=== PATIENT | male | born 1935 | race Caucasian/White ===

== ENCOUNTER 2017-09-02 15:16 | Inpatient (IN) | payer MEDICARE, OTHER ==
[~2017-09-02] VITALS: Ht 167.6 cm; Wt 73.1 kg
--- NOTE | 2017-09-02 15:25 | NUR ---
[id number] from home: R hip pain, lower extremities weakness s/p mechanical fall yesterday. cough, fever. RR IS EVEN AND UNLABORED WITH NAD NOTED. SKIN IS WARM AND DRY. PLACED ON THE MONITOR AND NC AT 2L/MIN. AWAITING MD FOR EVAL.
[2017-09-02 16:05] LABS: BASOPHILS % (AUTO) 0.2 % (0.0-2.0); HEMATOCRIT 43 % (39-51); HEMOGLOBIN 14.9 g/dL (13.5-17.5); LYMPHOCYTES # (AUTO) 0.9 /CMM (0.8-4.8); MEAN CORPUSCULAR HGB CONC 35 g/dl (31.0-36.0); MEAN CORPUSCULAR VOLUME 94 fL (80-96); MONOCYTES # (AUTO) 0.5 /CMM (0.1-1.30); MONOCYTES % (AUTO) 6.5 % (2.0-12.0); NEUTROPHILS # (AUTO) 6.4 /CMM (1.8-8.9); NEUTROPHILS % (AUTO) 82.3 % (43.0-81.0); PLATELET COUNT (AUTO) 220 /CMM (150-450); RDW COEFFICIENT OF VARIATION 12.7 (11.5-15.0); RED BLOOD CELL COUNT(AUTO) 4.51 MIL/uL (4.5-6.0); WHITE BLOOD COUNT (AUTO) 7.8 K/uL (4.3-11.0)
[2017-09-02 16:23] LABS: ALANINE AMINOTRANSFERASE 24 U/L (12-78); ALKALINE PHOSPHATASE 75 U/L (46-116); ASPARTATE AMINOTRANSFERASE 27 U/L (15-37); BILIRUBIN,DIRECT 0.3 mg/dL (0.0-0.2); BILIRUBIN,TOTAL 1.2 mg/dL (0.2-1.0); CALCIUM, SERUM 9.2 mg/dL (8.5-10.1); CARBON DIOXIDE 22 mmol/L (21-32); CHLORIDE 98 mmol/L (98-107); GLUCOSE 299 mg/dL (74-106); POTASSIUM 3.7 mmol/L (3.5-5.1); SODIUM SERUM 136 mmol/L (136-145); TOTAL PROTEIN, SERUM 8.1 g/dL (6.4-8.2); UREA NITROGEN, BLOOD 14 mg/dL (7-18)
[2017-09-02 16:25] LABS: TROPONIN I < 0.017 ng/mL (0.00-0.056)
[2017-09-02 16:39] LABS: INR 0.98 (0.87-1.13)
--- NOTE | 2017-09-02 17:33 | NUR ---
DR.RUTHERFORD JENNIFER EXHAUST WORKER
--- NOTE | 2017-09-02 17:36 | NUR ---
CALLED NURSING SUP. FOR MS BED
[2017-09-02] MEDS ORDERED: IV 1/2NS 1000 ML 1,000 ML IV PRN (17:44)
[2017-09-02] MEDS ORDERED: DULA1.5P SQ (17:52)
[2017-09-02] MEDS ORDERED: METF-442 PO (17:52)
[2017-09-02] MEDS ORDERED: LISI-607 PO (17:52)
[2017-09-02] MEDS ORDERED: TAMS0.4C34 PO (17:52)
[2017-09-02] MEDS ORDERED: GUAI100S11 PO (17:53)
[2017-09-02] MEDS ORDERED: Z GUARD REMEDY 2 OZ OINT TP PRN (18:00)
[2017-09-02] MEDS ORDERED: MAG HYDROX/AL HYDROX/SIMETH 30 ML UDC PO PRN (18:00)
[2017-09-02] MEDS ORDERED: ZOLPIDEM TARTRATE 5 MG TABLET PO PRN (18:00)
[2017-09-02] MEDS ORDERED: MAGNESIUM HYDROXIDE 30 ML UDC PO PRN (18:00)
[2017-09-02] MEDS ORDERED: MORPHINE SULFATE INJ 2 MG/ML DISP.SYRIN IV PRN (18:00)
[2017-09-02] MEDS ORDERED: HYDROCODONE/APAP 5/325MG 1 EACH TABLET PO PRN (18:00)
--- NOTE | 2017-09-02 18:10 | NUR ---
REPORT GIVEN TO SB BEAVERS FOR JOSE MS 202.
[2017-09-02 19:00] VITALS: BP 137/58
--- NOTE | 2017-09-02 19:00 | NUR ---
MS RN OPENING NOTES RECEIVED PT IN BED, AROUSABLE, ABLE TO STATE HIS NAME BUT GOES BACK TO SLEEP AFTER. NO DISTRESS, NO SOB NOTED. RESPIRATION IS EVEN AND UNLABORED. SON JESSA AT BEDSIDE. PT NOTED WITH ON AND OFF EPISODE OF COUGH. PER SON PT HAS BEEN COUGHING AND HAS COLDS FOR 2 DAYS. BODY CHECK DONE, SKIN IS INTACT. NO C/O PAIN OR DISCOMFORT AT THIS TIME. IV SITE ON LAC G # 20 INTACT AND PATENT, NO S/S OF INFILTRATION NOTED. ASPIRATION PRECAUTION OBSERVED. PLAN OF CARE DISCUSSED WITH THE SON VERBALIZED UNDERSTANDING. CALL LIGHT WITHIN REACH. SAFETY PRECAUTIONS OBSERVED . WILL CONT TO MONITOR.
--- NOTE | 2017-09-02 19:52 | NUR ---
PT APPEARS SLEEPY, WILL OPEN HIS EYES WHEN HIS NAME IS CALLED BUT WILL GO BACK TO SLEEP RIGHT AFTER, PER SON PT IS USUALLY RESPONSIVE, BUT TODAY HE STARTED TO BE MORE SLEEPY THAN BEFORE. PT'S SON ALSO STATED THAT HIS DAD FELL AND KEPT COMPLAINING OF RIGHT HIP PAIN , BUT PT WITH NO S/S OF PAIN AT THIS TIME, SON ALSO STATED THAT HIS DAD HAD COLS AND COUGH FOR 2 DAYS ALREADY. . CHECKED PT'S BLOOD SUGAR , WITH RESULT OF 282 AT THIS TIME. WILL CONT TO MONITOR PT CLOSELY.
--- NOTE | 2017-09-02 19:58 | NUR ---
pt was picked up by radiology staff for ct of the pelvis, pt in stable condition accompanied by son
[2017-09-02] MEDS ORDERED: GUAIFENESIN 300 MG/15 ML UDC PO PRN (20:00)
[2017-09-02] MEDS ORDERED: *INSULIN REGULAR(HUMULIN R)HUM 100 UNIT/ML VIAL SQ PRN (20:00)
[2017-09-02] MEDS ORDERED: DEXTROSE 50%-WATER 50 ML DISP.SYRIN IV PRN (20:00)
[2017-09-02] MEDS: ENOXAPARIN SODIUM 30 MG/0.3 ML DISP.SYRIN SQ SCH (21:19)
[2017-09-02] MEDS: BLOOD SUGAR DIAGNOSTIC 1 EACH STRIP VI SCH (21:21)
--- NOTE | 2017-09-02 21:40 | NUR ---
PT'S 02 SATURATION : 78 % AT THIS TIME, PT STILL AROUSABLE, ABLE TO OPEN HIS EYES, NASAL CANNULA OF 4 LPM ADMINISTERED TO THE PT , PT'S 02 SAT STILL ON THE 80'S , NC CHANGED TO MASK @ 8LPM , PT'S 02 SAT : 87 RT AT BEDSIDE. , PT WAS PLACED ON NON REBREATHER MASK @ 15L, 02 SAT : 94 % AT THIS TIME. JEFFERY, CHARGE NURSE INFORMED. PLACED A CALL TO MADDIE WILSON AWAITING FOR A CALL BACK .
--- NOTE | 2017-09-02 21:51 | NUR ---
RECEIVED A CALL BACK FROM MADDIE WILSON, INFORMED MADDIE REGARDING PT'S CONDITION, PT STILL ON A NON REBREATHER MASK @ 15 L , 02 SAT : 95 % AT THIS TIME,LETHARGIC. RECEIVED A N.O ORDERS FROM MADDIE WILSON NOTED AND CARRIED OUT. JEFFERY, COMPUTER ANALYST SUPERVISOR NURSE MADE AWARE.
--- NOTE | 2017-09-02 21:54 | NUR ---
PLACED A CALL TO RADIOLOGY DEPT AND SPOKE WITH KENNY, MADE AWARE, REGARDING STAT PULMONARY ANGIOGRAM ORDER.
--- NOTE | 2017-09-02 21:55 | NUR ---
PLACED A CALL TO ICU, SPOKE WITH RN MADE AWARE OF THE PT'S TRANSFER. PT WILL BE IN ROOM 258.
--- NOTE | 2017-09-02 22:00 | NUR ---
PLACED A CALL TO SB STERN REPORT GIVEN AND ENDORSED PT ACCORDINGLY.
--- NOTE | 2017-09-02 22:12 | NUR ---
PLACED A CALL TO PT'S SON JESSA, VERBAL CONSENT GIVEN FOR PULMONARY ANGIOGRAM, VERIFIED AND WITNESSED BY SB [place].
[2017-09-02] MEDS ORDERED: CT SWABBABLE VALVE TRANS SET 1 EA INFUS.SET MC ONE (22:19)
[2017-09-02] MEDS ORDERED: IOHEXOL-350 100 ML VIAL IV ONE (22:19)
[2017-09-02 22:26] LABS: ABG BASE EXCESS -3.6 mmol/L; ABG OXYGEN SATURATION 97.3 % (92.0-98.5); ABG PCO2 32.2 mmHg (35.0-45.0); ABG PO2 98.2 mmHg (75.0-100.0); AaDO2 582.6 mmHg; COHb 0.5 % (0.5-1.5); MetHb 0.5 % (0.0-1.5); O2Hb 96.3 % (94.0-97.0); SITE, ABG Right Radial; VENT MODE, BG NRB 15L
[2017-09-02] MEDS ORDERED: ENOXAPARIN SODIUM 60 MG/0.6 ML DISP.SYRIN SQ ONE (22:29)
[2017-09-02] MEDS ORDERED: ENOXAPARIN SODIUM 60 MG/0.6 ML DISP.SYRIN SQ SCH (22:30)
--- NOTE | 2017-09-02 22:34 | NUR ---
PT ACCOMPANIED TO RADIOLOGY FOR PULMONARY ANGIOGRAM, PT TRANSPORTED VIA ACLS PROTOCOL.
--- NOTE | 2017-09-02 22:55 | NUR ---
PT TRANSFERRED TO ICU ROOM 258, ENDORSED PT ACCORDINGLY TO JARRED BASURTO, BELONGINGS SENT WITH THE PT.
--- NOTE | 2017-09-02 23:00 | NUR ---
ICU ADMITTING NOTE PT TRANSFERED FROM MS 2 BY NIMESH BASURTO, S/P FALL, PELVIC XR (-) FOR FX, PT ON NON-REBREATHER @15L SAT @ 98% PRIOR TO RECEIVING PT, TRANSFERED TO CT PULMONARY WITH CONTRAST, BILAT LUNGS POSITIVE FOR LOWER LOBE PNA, UPON RECEIVING PT, DR LAL AT BEDSIDE, ASSESSED PT, CONCLUDED POSSIBLE CHF, ORDERED LASIX IV PUSH 40 MG X ONCE, DECADRONE 10MG IV PUSH, F/C INSERTED AND STARTED ON VACO 1GM AND ZOSYN 3.375GM IV, NO A/R NOTED AT THIS TIME WITH LAC 20G, ON 1/2NS @ 75MG, WELL ANNETTE DR LAL AWARE OF IV FLUIDS, PT DAIBETIC, BUT NIMESH BASURTO HELD INSULIN COVERAGE BECAUSE PT NOT ABLE TO ANNETTE PO INTAKE AT THIS TIME. WILL CONT TO MONITOR Addendum: 09/03/17 at 0601 by JARRED HUMPHRIES RN PT TRANSFERED BY SB BEAVERS, WRONG ENTRY. Addendum: 09/03/17 at 0604 by JARRED HUMPHRIES RN HELD INSULIN FOR BS 300, FOR POSSIBLE FX AND PT FOR POSSIBLE NPO STATUS
[2017-09-02] MEDS ORDERED: FUROSEMIDE 40 MG/4 ML VIAL IV ONE ×2 (23:30)
[2017-09-03] VITALS (24 sets, daily range): BP systolic 71–151; BP diastolic 43–90
[2017-09-03] MEDS ORDERED: DEXAMETHASONE SOD PHOSPHATE 10 MG/ML VIAL IV ONE (00:30)
[2017-09-03] MEDS ORDERED: PIPERACILLIN /TAZOBACTAM 3.375 G VIAL IV ONE ×2 (01:00→04:24)
[2017-09-03] MEDS ORDERED: VANCOMYCIN 1 GM in IV D5W 250 ML IV ONE (01:00)
[2017-09-03] MEDS: PIPERACILLIN /TAZOBACTAM 3.375 G in IV D5W 100 ML IV SCH ×2 (01:17→04:33)
[2017-09-03] MEDS ORDERED: VANCOMYCIN 1 GM VIAL ONE (01:19)
[2017-09-03] MEDS: ALBUTEROL FS 2.5 MG/0.5 ML VIAL.NEB NEB SCH ×5 (01:41→20:15)
[2017-09-03] MEDS: IPRATROPIUM NEB FS 0.5 MG/2.5 ML AMPUL.NEB NEB SCH ×5 (01:41→20:15)
[2017-09-03 04:57] LABS: HEMATOCRIT 43 % (39-51); LYMPHOCYTES # (AUTO) 0.7 /CMM (0.8-4.8); LYMPHOCYTES % (AUTO) 8.9 % (20.0-44.0); MEAN CORPUSCULAR HGB CONC 35 g/dl (31.0-36.0); MEAN CORPUSCULAR VOLUME 95 fL (80-96); MONOCYTES # (AUTO) 0.5 /CMM (0.1-1.30); MONOCYTES % (AUTO) 6.2 % (2.0-12.0); NEUTROPHILS # (AUTO) 6.6 /CMM (1.8-8.9); NEUTROPHILS % (AUTO) 84.9 % (43.0-81.0); PLATELET COUNT (AUTO) 202 /CMM (150-450); RED BLOOD CELL COUNT(AUTO) 4.52 MIL/uL (4.5-6.0); WHITE BLOOD COUNT (AUTO) 7.8 K/uL (4.3-11.0)
[2017-09-03 05:22] LABS: CALCIUM, SERUM 8.5 mg/dL (8.5-10.1); CARBON DIOXIDE 24 mmol/L (21-32); CHLORIDE 97 mmol/L (98-107); CREATININE 1.2 mg/dL (0.6-1.3); MAGNESIUM 1.9 mg/dL (1.8-2.4); PHOSPHORUS 4.9 mg/dL (2.5-4.9); POTASSIUM 3.5 mmol/L (3.5-5.1); SODIUM SERUM 135 mmol/L (136-145); UREA NITROGEN, BLOOD 18 mg/dL (7-18)
[2017-09-03 05:33] LABS: GLUCOSE 430 mg/dL (74-106)
[2017-09-03] MEDS: INSULIN REGULAR, HUMAN 100 UNIT/ML 3 ML VIAL SQ PRN ×5 (05:48→17:14)
--- NOTE | 2017-09-03 05:56 | NUR ---
CL BS [address] WILSON WITH ORDER TO GIVE 20UNITS NOW, AND RECHECK SCHEDULED AND REPORTED INCREASING AUDIBLE CRACKLES, ORDERED TO DC IV 1/2NS@75ML, GIVE LASIX 40MG IV PUSH X 1 DOSE ORDER CARRIED OUT, WILL CONT TO MONITOR THE PT.
[2017-09-03] MEDS ORDERED: FUROSEMIDE 40 MG/4 ML VIAL IV ONE (06:00)
[2017-09-03] MEDS: BLOOD SUGAR DIAGNOSTIC 1 EACH STRIP VI SCH ×2 (06:38→12:56)
--- NOTE | 2017-09-03 06:53 | NUR ---
SURGICAL ENDOSCOPIST CLOSING NOTE ENDORSED PT MORE AWAKE AOX2, EASILY AROUSEABLE, CL BS [address] WILSON, WITH ORDER FOR 20 UNITS OF REGULAR INSULIN NOW AND RECHECK PER SCHEDULE. AT 0630 RECHECKED BS 424 COVERED PER SLIDING SCALE 15 UNITS, REPORTED TO DR WILSON TO CALL BACK, PT VS STABLE, WILL ENDORSE TO AM SHIFT NURSE TO F/U.
--- NOTE | 2017-09-03 07:10 | NUR ---
RN NOTE PATIENT RECEIVED IN BED. PER PM NURSE JARRED HUMPHRIES. SOME OF PATIENT'S ARE MISSING. WENT TO CHECK SAFE WITH NURSING IN HOME CAREGIVER HIRO AND ALSO CHECKED EMERGENCY ROOM, WITH NO SUCCESS.
[2017-09-03] MEDS ORDERED: FEE PK DOSING 1 MIN EA MC ONE (08:26)
--- NOTE | 2017-09-03 08:30 | NUR ---
SPOKE TO JESSA, SON AND VERIFIED REGARDING PT'S BELONGINGS. PER PT'S SON HE HAVE HIS DAD'S WALLET AND CREDIT CARD WITH HIM , HE TOOK IT HOME, KAREN BEAVERS RN SPOKE WITH SON AND VERIFIED AND WITNESSED THAT PER JESSA, SON , HE HAS PT'S WALLET AND CREDIT CARD.
[2017-09-03] MEDS: LISINOPRIL (5MG) 5 MG TABLET PO SCH (08:40)
[2017-09-03] MEDS: TAMSULOSIN 0.4 MG CAP.SR.24H PO SCH ×2 (08:40→16:59)
[2017-09-03] MEDS: ONDANSETRON HCL/PF 4 MG/2 ML VIAL IVP PRN ×2 (11:01→18:40)
[2017-09-03] MEDS: ACETAMINOPHEN 325 MG TABLET PO PRN (11:01)
[2017-09-03] MEDS: PIPERACILLIN /TAZOBACTAM 3.375 G in IV D5W 50 ML IV SCH ×3 (12:56→23:03)
[2017-09-03] MEDS ORDERED: IV NS 0.9% 500 ML IV ONE (14:30)
[2017-09-03] MEDS: VANCOMYCIN 0.75 GM in IV D5W 250 ML IV SCH (14:43)
[2017-09-03] MEDS ORDERED: *INSULIN REGULAR(HUMULIN R)HUM 100 UNIT/ML VIAL SQ PRN (15:00)
[2017-09-03] MEDS ORDERED: DEXTROSE 50%-WATER 50 ML DISP.SYRIN IV PRN (15:00)
[2017-09-03] MEDS ORDERED: INSULIN REGULAR, HUMAN 100 UNIT/ML 3 ML VIAL SQ PRN (15:00)
[2017-09-03] MEDS: BLOOD SUGAR DIAGNOSTIC 1 EACH STRIP IN SCH ×2 (16:59→21:00)
--- NOTE | 2017-09-03 20:00 | NUR ---
RN INITIAL NOTES RECEIVED PT IN BED, AWAKE. NO DISTRESS, NO SOB NOTED. RESPIRATION IS EVEN AND UNLABORED. SON JESSA AT BEDSIDE. PT HAS A PRODUCTIVE COUGH. NO C/O PAIN OR DISCOMFORT AT THIS TIME. IV SITE ON LAC G # 20 INTACT AND PATENT, NO S/S OF INFILTRATION NOTED. ASPIRATION PRECAUTION OBSERVED. PLAN OF CARE DISCUSSED WITH THE SON VERBALIZED UNDERSTANDING. CALL LIGHT WITHIN REACH. SAFETY PRECAUTIONS OBSERVED . WILL CONT TO MONITOR.
[2017-09-03] MEDS: ENOXAPARIN SODIUM 30 MG/0.3 ML DISP.SYRIN SQ SCH (20:51)
[2017-09-04] VITALS (26 sets, daily range): BP systolic 71–140; BP diastolic 43–93
[2017-09-04] MEDS: VANCOMYCIN 0.75 GM in IV D5W 250 ML IV SCH ×2 (01:06→16:16)
[2017-09-04] MEDS: ACETAMINOPHEN 325 MG TABLET PO PRN (04:52)
[2017-09-04] MEDS: PIPERACILLIN /TAZOBACTAM 3.375 G in IV D5W 50 ML IV SCH ×4 (04:52→23:32)
[2017-09-04 05:21] LABS: CALCIUM, SERUM 8.7 mg/dL (8.5-10.1); CARBON DIOXIDE 26 mmol/L (21-32); CHLORIDE 94 mmol/L (98-107); CREATININE 1.6 mg/dL (0.6-1.3); POTASSIUM 3.2 mmol/L (3.5-5.1); SODIUM SERUM 133 mmol/L (136-145); UREA NITROGEN, BLOOD 39 mg/dL (7-18)
[2017-09-04 05:29] LABS: GLUCOSE 356 mg/dL (74-106)
[2017-09-04] MEDS: INSULIN REGULAR, HUMAN 100 UNIT/ML 3 ML VIAL SQ PRN ×2 (06:10→08:13)
--- NOTE | 2017-09-04 06:42 | NUR ---
RN CLOSING NOTE NO CHANGE IN PT CONDITION OVER NIGHT, PT MORE AWAKE AOX2, EASILY ABUSABLE, BS [address] WILSON, COVERED PER SLIDING SCALE 15 UNITS, PT VS STABLE, WILL ENDORSE TO AM SHIFT NURSE.
--- NOTE | 2017-09-04 07:45 | NUR ---
RN INITIAL NOTES RECEIVED PT IN BED, AWAKE. NO DISTRESS, NO SOB NOTED. RESPIRATION IS EVEN AND UNLABORED. SON JESSA AT BEDSIDE ,NO C/O PAIN OR DISCOMFORT AT THIS TIME. IV SITE ON LAC G # 20 INTACT AND PATENT, NO S/S OF INFILTRATION NOTED. ASPIRATION PRECAUTION OBSERVED. PLAN OF CARE DISCUSSED WITH THE SON VERBALIZED UNDERSTANDING. CALL LIGHT WITHIN REACH. SAFETY PRECAUTIONS OBSERVED . WILL CONT TO MONITOR. HAVING BREAKFAST AT THIS TIME ABLE TO EAT SELF, O TELE MONITOR ST 101 WITH NAVAS CATH TO GRAVITY BED IN LOWEST AND LOCKED POSITION , WILL CONT TO MONITOR CLOSELY
[2017-09-04] MEDS: IPRATROPIUM NEB FS 0.5 MG/2.5 ML AMPUL.NEB NEB SCH ×4 (07:56→20:02)
[2017-09-04] MEDS: ALBUTEROL FS 2.5 MG/0.5 ML VIAL.NEB NEB SCH ×4 (07:56→20:02)
[2017-09-04] MEDS: TAMSULOSIN 0.4 MG CAP.SR.24H PO SCH ×2 (08:11→16:48)
[2017-09-04] MEDS: LISINOPRIL (5MG) 5 MG TABLET PO SCH (08:11)
[2017-09-04] MEDS: BLOOD SUGAR DIAGNOSTIC 1 EACH STRIP IN SCH ×7 (08:16→23:10)
[2017-09-04] MEDS: ONDANSETRON HCL/PF 4 MG/2 ML VIAL IVP PRN ×2 (08:19→18:05)
--- NOTE | 2017-09-04 08:25 | NUR ---
RESIST COATER DEVELOPER NOTE BECOME SEVERE CHEST CONGESTED AFTER GIVEN1 SPOON OF OATMEAL , CALLED RT, BREATHING TX DONE ORDERED, ALSO ZOFRAN 4 MG IVP GIVEN ORDERED FOR NAUSEA , ST 115-120 ON TELE MONITOR , WILL MONITOR CLOSELY CHEST X RAY STAT DONE ORDERED
--- NOTE | 2017-09-04 08:40 | NUR ---
SERVICE CORRESPONDENT NOTE PER RT PLACED ON NONREBREATHER MASK FOR NOW, SAT 95% HR STILL ST 120, WILL CONT TO MONITOR CLOSELY
[2017-09-04] MEDS ORDERED: IV NS 0.9% 1,000 ML IV SCH (09:30)
--- NOTE | 2017-09-04 10:00 | NUR ---
SMOOTH AND BURR WORKER COMPOSITES NOTE PER RT PLACED ON SIMPLE MASK 6 L, SAT 95% AT THIS TIME, WILL CONT TO MONITOR CLOSELY
--- NOTE | 2017-09-04 10:36 | NUR ---
LEATHER CRAFTER NOTE SPOKE WITH DR MAR NOTIFIED THAT EARLIER GET SEVERE CHEST CONGESTED WITH CHEST X RAY MILD PULMONARY CONGESTION ALSO AWARE THAT BUN 39 CREATINE 1.6 AND URINE OUTPUT 100 ML SINCE MORNING NO LASIX AT THIS TIME ALSO SALTED OK TO STOP IVF AND AWAIT FOR EARLY INTERVENTIONIST AT THIS POINT , NO EDEMA NOTED ON BOTH LEGS AT THIS THIS TIME, NOTIFIED THAT HR RANGE 13-130, WILL CONT TO MONITOR Addendum: 09/04/17 at 1050 by RICA DASILVA RN CORRECTION IN SPELLING NOT SALTED IS ORDERED . AWARE THAT HR RANGE 113-130
--- NOTE | 2017-09-04 10:53 | NUR ---
ELECTRIC ARC WELDER NOTE CALLED X2 TO PHARMACY TO GET KCL IV ,STATED THAT WILL BRING SOON , WILL AWAIT, KCL NEED TO BE PLACED AT 09 :55 ,PHARMACIST AWARE
--- NOTE | 2017-09-04 11:54 | NUR ---
YOUTH SERVICES SPECIALIST NOTE CALLED AGAIN TO PHARMACY FOR KCI THEY SAY THAT WILL DELIVER SOON ,WILL F\U
[2017-09-04] MEDS ORDERED: ONDANSETRON 4 MG TAB.RAPDIS PO PRN (12:00)
[2017-09-04] MEDS: POTASSIUM CL. PREMIX PERIPHER. 50 ML IV SCH ×4 (12:24→23:21)
--- NOTE | 2017-09-04 13:15 | NUR ---
FLOCCULATOR OPERATOR NOTE SPOKE WITH DR GONZALEZ BURN CENTER NURSE NOTIFY THAT PER CHEST XRAY MILD PULMONARY CONGESTION, IVF WAS STOPPLED BY ORDER DR JESUS, AWARE THAT K 3.2 WILL ORDER REPLACING KCL ALSO AWARE THAT BUN 39 CREATINE 1.6 STATED THAT WILL ORDER LASIX 40 MG TIME ONE , WILL F\U
--- NOTE | 2017-09-04 14:43 | NUR ---
LICENSED INSURANCE AGENT NOTE PER DR GONZALEZ ACCOUNTING LECTURER OK TO ORDER LASIX 40 MG IVP TIME 1 ,AWARE OF CHEST X RAY RESULT
[2017-09-04] MEDS ORDERED: FUROSEMIDE 40 MG/4 ML VIAL IV ONE (15:00)
--- NOTE | 2017-09-04 16:31 | NUR ---
STUDY MANAGER NOTE VANCO LEVEL IS 12 ,VANCOMYCIN ADMINISTERED ORDERED , KEEP CLEAN DRY TURN REPOSITION Q2 HOUR , FAMILY AT BEDSIDE
[2017-09-04] MEDS: LACTOBACILLUS RHAMNOSUS GG 1 EACH CAP.SPRINK PO SCH (16:48)
--- NOTE | 2017-09-04 17:31 | NUR ---
STONER OUT NOTE BLOOD SUGAR IS 526 MG\ DL REPEATED IS 539 MG\ DL ORDERED GLUCOSE LEVEL STAT , WILL F\U
--- NOTE | 2017-09-04 18:15 | NUR ---
CONVALESCENT SITTER NOTE CALLED TO DR LAL NOTIFIED THAT BLOOD SUGAR 529 MG\ DL ORDERED 15 UNITS REGULAR INSULIN IV TIME ONE AND LANTUS QHS ORDER, CARRIED OUT
--- NOTE | 2017-09-04 18:29 | NUR ---
CARD PAINTER NOTE C\O NAUSEA AND VOMITING .ZOFRAN 4 MG IVP GIVEN ORDERED.WILL F\U ,FAMILY AT BEDSIDE
[2017-09-04] MEDS ORDERED: INSULIN REGULAR, HUMAN 100 UNIT/ML 10 ML VIAL IV ONE (18:30)
--- NOTE | 2017-09-04 18:30 | NUR ---
LEGUILLON DEBEADER NOTE INSULIN REGULAR 15 UNITS IV TIME ONE GIVEN ORDERED ,WILL CONT TO MONITOR CLOSELY
--- NOTE | 2017-09-04 20:00 | NUR ---
RN INITIAL NOTES RECEIVED PT IN BED, AWAKE. NO DISTRESS, NO SOB NOTED. RESPIRATION IS EVEN AND UNLABORED. SON JESSA AT BEDSIDE ,NO C/O PAIN OR DISCOMFORT AT THIS TIME. IV SITE ON LAC G # 20 INTACT AND PATENT, NO S/S OF INFILTRATION NOTED. ASPIRATION PRECAUTION OBSERVED. PLAN OF CARE DISCUSSED WITH THE SON VERBALIZED UNDERSTANDING. CALL LIGHT WITHIN REACH. SAFETY PRECAUTIONS OBSERVED . SR ON TELE MONITOR, WITH NAVAS CATH TO GRAVITY BED IN LOWEST AND LOCKED POSITION , WILL CONT TO MONITOR CLOSELY
[2017-09-04] MEDS ORDERED: POTASSIUM CHLORIDE 20 MEQ TAB.PRT.SR PO ONE (20:30)
[2017-09-04] MEDS ORDERED: INSULIN REGULAR, HUMAN 100 UNIT/ML 3 ML VIAL ONE (20:36)
[2017-09-04] MEDS: INSULIN REGULAR, HUMAN 100 UNIT in IV NS 0.9% 99 ML IV PRN ×2 (20:51)
[2017-09-04] MEDS: ENOXAPARIN SODIUM 30 MG/0.3 ML DISP.SYRIN SQ SCH (20:56)
[2017-09-04] MEDS ORDERED: INSULIN GLARGINE, 100 UNIT/ML CARTRIDGE SQ SCH (22:00)
[2017-09-04] MEDS: INSULIN GLARGINE, 100 UNIT/ML CARTRIDGE SQ SCH (22:00)
[2017-09-04 22:45] LABS: AMYLASE 153 U/L (25-115); CALCIUM, SERUM 8.5 mg/dL (8.5-10.1); CARBON DIOXIDE 26 mmol/L (21-32); CHLORIDE 92 mmol/L (98-107); CREATININE 2.1 mg/dL (0.6-1.3); LIPASE 128 U/L (73-393); SODIUM SERUM 128 mmol/L (136-145); UREA NITROGEN, BLOOD 46 mg/dL (7-18)
[2017-09-04 22:48] LABS: GLUCOSE 516 mg/dL (74-106); POTASSIUM 2.6 mmol/L (3.5-5.1)
[2017-09-04] MEDS ORDERED: POTASSIUM CL. PREMIX PERIPHER. 300 ML ONE (23:15)
[2017-09-05] VITALS (26 sets, daily range): BP systolic 97–137; BP diastolic 49–95
[2017-09-05] MEDS: BLOOD SUGAR DIAGNOSTIC 1 EACH STRIP IN SCH ×16 (00:23→21:26)
[2017-09-05] MEDS: POTASSIUM CL. PREMIX PERIPHER. 50 ML IV SCH ×6 (00:49→09:27)
[2017-09-05] MEDS: VANCOMYCIN 0.75 GM in IV D5W 250 ML IV SCH ×2 (02:58→15:08)
[2017-09-05] MEDS: PIPERACILLIN /TAZOBACTAM 3.375 G in IV D5W 50 ML IV SCH ×3 (05:05→17:18)
--- NOTE | 2017-09-05 06:43 | NUR ---
RN CLOSING NOTE PT PLACED ON AN INSULIN DRIP ORDERED BY Jeff WILSON, DONIS [phone], PT GIVEN POTASSIUM IV, PT VS STABLE, WILL ENDORSE TO AM SHIFT NURSE.
--- NOTE | 2017-09-05 07:15 | NUR ---
RIPPLER OPENING RECEIVED PATIENT MALTESE SPEAKING ONLY A/OX2-3 PLEASANT. DENIES SOB, DIFFICULTY BREATHING OR PAIN AT THIS TIME. ON SIMPLE FACE MASK 6LPM TOLERATING WELL. WILL TITRATE TOLERATED. PATIENT ON INSULIN DRIP PER MD ORDER INFUSING ORDERED. PATIENT PLACED ON 2LPM NC AND TOLERATING WELL; 94-98%. PATIENT NEEDS ASSESSED AND MET. SAFETY PRECAUTIONS IN PLACE. PATIENT WILL BE ROUNDED PRN. CALL LIGHT IN REACH.
[2017-09-05] MEDS: IPRATROPIUM NEB FS 0.5 MG/2.5 ML AMPUL.NEB NEB SCH ×4 (07:35→20:16)
[2017-09-05] MEDS: LACTOBACILLUS RHAMNOSUS GG 1 EACH CAP.SPRINK PO SCH ×2 (08:27→16:20)
[2017-09-05] MEDS: TAMSULOSIN 0.4 MG CAP.SR.24H PO SCH ×2 (08:27→16:20)
[2017-09-05] MEDS: ALBUTEROL FS 2.5 MG/0.5 ML VIAL.NEB NEB SCH ×4 (08:31→20:16)
[2017-09-05] MEDS: INSULIN REGULAR, HUMAN 100 UNIT in IV NS 0.9% 99 ML IV PRN ×10 (08:37→12:54)
[2017-09-05] MEDS: ONDANSETRON HCL/PF 4 MG/2 ML VIAL IVP PRN ×2 (08:44→16:32)
--- NOTE | 2017-09-05 08:56 | NUR ---
ICU/RN: Dr Diaz informed of current lab results and blood glucose trends that are trending down with anion gap of 14 - per MD will review labs and assess need to DC insulin drip.
--- NOTE | 2017-09-05 09:59 | NUR ---
ICU/RN: Dr Alfonso hook; updated on pt status - informed of current lab results on insulin drip, pt with good urinary output. MD to review records, awaiting orders.
--- NOTE | 2017-09-05 12:00 | NUR ---
ICU/RN: and daughter at bedside, updated and educated on POC. Per daughter, pt also has periods of confusion and forgetfulness at home. Pt attempted to pull out IV, arm sleeve applied for safety.
[2017-09-05 12:50] LABS: CALCIUM, SERUM 8.4 mg/dL (8.5-10.1); CARBON DIOXIDE 22 mmol/L (21-32); CHLORIDE 97 mmol/L (98-107); CREATININE 1.6 mg/dL (0.6-1.3); GLUCOSE 222 mg/dL (74-106); POTASSIUM 3.2 mmol/L (3.5-5.1); SODIUM SERUM 131 mmol/L (136-145); UREA NITROGEN, BLOOD 45 mg/dL (7-18)
[2017-09-05 12:59] LABS: HEMATOCRIT 37 % (39-51); HEMOGLOBIN 12.9 g/dL (13.5-17.5); LYMPHOCYTES # (AUTO) 0.8 /CMM (0.8-4.8); LYMPHOCYTES % (AUTO) 9.8 % (20.0-44.0); MEAN CORPUSCULAR HGB CONC 35 g/dl (31.0-36.0); MEAN CORPUSCULAR VOLUME 95 fL (80-96); MONOCYTES # (AUTO) 0.6 /CMM (0.1-1.30); MONOCYTES % (AUTO) 6.6 % (2.0-12.0); NEUTROPHILS % (AUTO) 83.6 % (43.0-81.0); PLATELET COUNT (AUTO) 210 /CMM (150-450); RDW COEFFICIENT OF VARIATION 12.7 (11.5-15.0); RED BLOOD CELL COUNT(AUTO) 3.91 MIL/uL (4.5-6.0); WHITE BLOOD COUNT (AUTO) 8.3 K/uL (4.3-11.0)
[2017-09-05 13:39] LABS: PHOSPHORUS 2.1 mg/dL (2.5-4.9)
--- NOTE | 2017-09-05 14:30 | NUR ---
ICU/RN: Dr Joe hook; updated on pt status. Orders electrolyte replacements, DC insulin drip and start aggressive sliding scale. Noted and carried out.
[2017-09-05] MEDS: ACETAMINOPHEN 325 MG TABLET PO PRN (14:49)
[2017-09-05] MEDS ORDERED: DEXTROSE 50%-WATER 50 ML DISP.SYRIN IV PRN (15:00)
[2017-09-05] MEDS: INSULIN REGULAR, HUMAN 100 UNIT/ML 3 ML VIAL SQ PRN ×3 (15:00→21:30)
[2017-09-05] MEDS ORDERED: POTASSIUM CHLORIDE 20 MEQ POWDER PACKET GT ONE (16:00)
[2017-09-05] MEDS ORDERED: NEUTRA PHOS 1 POWD.PACKET GT ONE (16:00)
--- NOTE | 2017-09-05 17:00 | NUR ---
ICU/RN: Per pt pain management effective. Pt received snack prior to 1700 accucheck. Will cover per sliding scale.
--- NOTE | 2017-09-05 19:08 | NUR ---
ICU/RN: Pt resting in bed comfortably, no distress noted. Pt with productive cough. Care endorsed to PM RN for JOSE.
--- NOTE | 2017-09-05 21:01 | NUR ---
[facility] OB INITIAL NOTE RECEIVED REPORT FROM EMMETT BASURTO. PT IN BED. A/A/0 X3. SON AT BEDSIDE. 2L NC, LUNG SOUNDS WHEEZING. BOWEL SOUNDS PRESENT, ABDOMEN DISTENDED BUT NON TENDER. PULSES PRESENT. IV PATENT AND INTACT. BED IN LOW LOCKED POSITION. CALL LIGHT WITHIN REACH. WILL CONTINUE TO MONITOR. ORDERS TO DOWNGRADE TO [place].
[2017-09-05] MEDS: ENOXAPARIN SODIUM 30 MG/0.3 ML DISP.SYRIN SQ SCH (21:28)
[2017-09-05] MEDS: INSULIN GLARGINE, 100 UNIT/ML CARTRIDGE SQ SCH (21:29)
[2017-09-06] VITALS (13 sets, daily range): BP systolic 119–154; BP diastolic 63–90
[2017-09-06] MEDS: BLOOD SUGAR DIAGNOSTIC 1 EACH STRIP IN SCH ×6 (00:02→21:23)
[2017-09-06] MEDS: INSULIN REGULAR, HUMAN 100 UNIT/ML 3 ML VIAL SQ PRN ×6 (00:07→21:25)
[2017-09-06] MEDS: VANCOMYCIN 0.75 GM in IV D5W 250 ML IV SCH ×2 (01:48→14:01)
[2017-09-06 05:05] LABS: BASOPHILS % (AUTO) 0.1 % (0.0-2.0); EOSINOPHILS % (AUTO) 0.3 % (0.0-6.0); HEMATOCRIT 38 % (39-51); HEMOGLOBIN 13.3 g/dL (13.5-17.5); LYMPHOCYTES # (AUTO) 1.1 /CMM (0.8-4.8); LYMPHOCYTES % (AUTO) 11.9 % (20.0-44.0); MEAN CORPUSCULAR HGB CONC 35 g/dl (31.0-36.0); MEAN CORPUSCULAR VOLUME 96 fL (80-96); MONOCYTES # (AUTO) 0.7 /CMM (0.1-1.30); MONOCYTES % (AUTO) 7.4 % (2.0-12.0); NEUTROPHILS # (AUTO) 7.5 /CMM (1.8-8.9); NEUTROPHILS % (AUTO) 80.3 % (43.0-81.0); PLATELET COUNT (AUTO) 239 /CMM (150-450); RDW COEFFICIENT OF VARIATION 12.8 (11.5-15.0); RED BLOOD CELL COUNT(AUTO) 3.94 MIL/uL (4.5-6.0); WHITE BLOOD COUNT (AUTO) 9.4 K/uL (4.3-11.0)
[2017-09-06] MEDS: PIPERACILLIN /TAZOBACTAM 3.375 G in IV D5W 50 ML IV SCH ×6 (05:11→23:38)
[2017-09-06 05:29] LABS: CALCIUM, SERUM 8.8 mg/dL (8.5-10.1); CARBON DIOXIDE 26 mmol/L (21-32); CHLORIDE 95 mmol/L (98-107); CREATININE 1.4 mg/dL (0.6-1.3); GLUCOSE 181 mg/dL (74-106); MAGNESIUM 2.1 mg/dL (1.8-2.4); PHOSPHORUS 2.2 mg/dL (2.5-4.9); POTASSIUM 3.8 mmol/L (3.5-5.1); SODIUM SERUM 131 mmol/L (136-145); UREA NITROGEN, BLOOD 34 mg/dL (7-18)
--- NOTE | 2017-09-06 07:35 | NUR ---
RN NOTES RECEIVED PT RESTING IN BED, AWAKE ALERT ORIENTED TO NAME, FRENCH SPEAKING. SR ON MATERIAL HANDLING SUPERVISOR. NO ACUTE DISTRESS NOTED. R HAND 20G SL, L HAND 20G SL FLUSHED WITH NS BOTH PATENT. DENIES PAIN AT THIS TIME. KEPT CLEAN AND COMFORTABLE. WILL MONITOR CLOSELY
[2017-09-06] MEDS: IPRATROPIUM NEB FS 0.5 MG/2.5 ML AMPUL.NEB NEB SCH ×4 (08:19→20:16)
[2017-09-06] MEDS: ALBUTEROL FS 2.5 MG/0.5 ML VIAL.NEB NEB SCH ×4 (08:19→20:16)
[2017-09-06] MEDS: LACTOBACILLUS RHAMNOSUS GG 1 EACH CAP.SPRINK PO SCH ×2 (09:05→17:12)
[2017-09-06] MEDS: TAMSULOSIN 0.4 MG CAP.SR.24H PO SCH ×2 (09:09→17:12)
--- NOTE | 2017-09-06 11:40 | NUR ---
RN NOTES PT TRANSFERRED TO 313-1 REPORT GIVEN TO SHAWN BASURTO FOR CONTINUITY OF CARE. AND DAUGHTER AT BEDSIDE. PT HAS WALLET AND WATCH FROM [employer]E (HANDED TO ME BY [facility] MAN), RE-CHECKED AND COUNTED WITH SB ESCOBAR AND INSTRUCTED TO PLACE ON SAFE. DAUGHTER MADE AWARE THAT PT VALUABLE WILL BE PLACED ON A SAFE, DAUGHTER AGREED BUT SHE SAID SHE WANTS TO JUST TAKE IT HOME EVENTUALLY. DAUGHTER INSTRUCTED TO JUST LET THE NURSE KNOW IF SHE'S READY TO TAKE THE BELONGINGS HOME.
--- NOTE | 2017-09-06 11:45 | NUR ---
TELE/FIRE SPRINKLER APPARATUS INSPECTOR FROM ICU PATIENT TRANSFERRED FROM ICU. A/O X 3, COOK ISLANDER SPEAKING. NO SIGNS OF ACUTE DISTRESS. NO COMPLAIN OF PAIN OR DISCOMFORT. ON TELE MONITOR NOTED WITH SINUS RHYTHM. ALL NEEDS ATTENDED TO. CALL LIGHT WITHIN REACH. FAMILY AT BEDSIDE. WILL CONTINUE TO MONITOR TO ENSURE SAFETY.
--- NOTE | 2017-09-06 11:52 | NUR ---
TELE/RN INVENTORY ON INVENTORY ONE WATCH AND WALLET WITH $21.00 AND 4620 LUXEMBOURGER MONEY RETURNED TO DAUGHTER TO TAKE HOME. INVENTORY LIST SIGNED BY DAUGHTER AND I AND WITNESSED BY MAMADOU BASURTO.
[2017-09-06] MEDS ORDERED: K PHOS NEUTRAL 250 MG TABLET PO ONE (13:30)
--- NOTE | 2017-09-06 18:20 | NUR ---
TELE/RN CLOSING NOTE PATIENT IN BED IN STABLE CONDITION. A/O X 3, BURKINAN SPEAKING. NO SIGNS OF ACUTE DISTRESS. NO COMPLAIN OF PAIN OR DISCOMFORT. ON TELE MONITOR NOTED WITH SINUS RHYTHM 95. TOLERATING WELL. ALL NEEDS ATTENDED TO. CALL LIGHT WITHIN REACH. WILL ENDORSE TO NEXT SHIFT FOR CONTINUITY OF CARE.
[2017-09-06] MEDS: ENOXAPARIN SODIUM 30 MG/0.3 ML DISP.SYRIN SQ SCH (21:04)
[2017-09-06] MEDS: INSULIN GLARGINE, 100 UNIT/ML CARTRIDGE SQ SCH (21:26)
[2017-09-07] VITALS: BP 130/68
[2017-09-07] MEDS: BLOOD SUGAR DIAGNOSTIC 1 EACH STRIP IN SCH ×5 (00:15→17:00)
[2017-09-07] MEDS: INSULIN REGULAR, HUMAN 100 UNIT/ML 3 ML VIAL SQ PRN ×2 (00:31→04:27)
[2017-09-07] MEDS: VANCOMYCIN 0.75 GM in IV D5W 250 ML IV SCH ×2 (00:59→15:28)
[2017-09-07 04:00] VITALS: BP 138/85
--- NOTE | 2017-09-07 04:45 | NUR ---
rn notes SOPHIE THROUGH DRAW AT 09/07 = 35. RECHECK SOPHIE THROUGH 09/07 AT 05:00AM
[2017-09-07] MEDS: PIPERACILLIN /TAZOBACTAM 3.375 G in IV D5W 50 ML IV SCH ×3 (05:04→18:00)
[2017-09-07 06:44] LABS: CALCIUM, SERUM 8.4 mg/dL (8.5-10.1); CARBON DIOXIDE 29 mmol/L (21-32); CHLORIDE 97 mmol/L (98-107); CREATININE 1.1 mg/dL (0.6-1.3); GLUCOSE 152 mg/dL (74-106); POTASSIUM 3.5 mmol/L (3.5-5.1); SODIUM SERUM 133 mmol/L (136-145); UREA NITROGEN, BLOOD 24 mg/dL (7-18)
[2017-09-07] MEDS: IPRATROPIUM NEB FS 0.5 MG/2.5 ML AMPUL.NEB NEB SCH ×3 (07:27→15:35)
[2017-09-07] MEDS: ALBUTEROL FS 2.5 MG/0.5 ML VIAL.NEB NEB SCH ×3 (07:27→15:35)
--- NOTE | 2017-09-07 07:42 | NUR ---
CLIENT SUCCESS SPECIALIST OPENING NOTE RECEIVED BEDSIDE SBAR REPORT OF ON THE PATIENT. PATIENT IS A/O X3, SLOVENIAN SPEAKING, ASLEEP EASILY AWAKEN IN BED. CHEST IS RISING EQUALLY, BILATERALLY. DENIES ANY PAIN AT THIS TIME. EXTERNAL MONITOR READING SR 85. NO C/O SOB, N/V. IV SITE INTACT, NO INFILTRATION NOTED. PATIENT IS IN BED. BED IS LOCKED IN LOWEST POSITION, SIDE RAILS UP X3, BED ALARM IS ON. CALL LIGHT WITHIN REACH. PATIENT EDUCATED TO CALL FOR ASSISTANCE USING THE CALL LIGHT AND VERBALIZED UNDERSTANDING. WILL CONTINUE TO ASSESS/MONITOR THROUGHOUT THE SHIFT.
[2017-09-07 08:00] VITALS: BP 133/74
[2017-09-07] MEDS: TAMSULOSIN 0.4 MG CAP.SR.24H PO SCH ×2 (09:37→17:00)
[2017-09-07] MEDS: LACTOBACILLUS RHAMNOSUS GG 1 EACH CAP.SPRINK PO SCH ×2 (09:37→17:00)
--- NOTE | 2017-09-07 09:46 | NUR ---
BG 190MG/DL. PATIENT REFUSES TO EAT AT THIS TIME STATING HE IS SLEEPY AND DOES NOT HAVE APPETITE. ZOHAIB Bunn CNA TRANSLATED. NOT ADMINISTERING INSULIN AT THIS TIME
[2017-09-07] MEDS ORDERED: LEVO500T75 PO (10:58)
--- NOTE | 2017-09-07 12:36 | NUR ---
CAME TO ADMINISTER ZOSYN. PATIENT WAS AMBULATING WITH PT. WILL COME BACK TO ADMINISTER LATER.
--- NOTE | 2017-09-07 14:19 | NUR ---
BLOOD GLUCOSE 203MG/DL. PATIENT REFUSED LUNCH AND BREAKFAST. FAMILY AT E BEDSIDE STATED THEY DON'T WANT INSULIN COVERAGE AT THIS TIME.
--- NOTE | 2017-09-07 17:27 | NUR ---
DISCHARGE ORDER RECEIVED. DISCHARGE EDUCATION PROVIDED TO PATIENT/FAMILY AT THE BEDSIDE. PER CHARGE NURSE [facility] SCHEDULED TO [facility] THE PATIENT AT 1830 TO TRANSPORT TO [facility]. SBAR TELEPHONE REPORT GIVEN TO LORIE AT [facility]. PER ACCEPTING FACILITY LEAVE THE NAVAS CATHETER IN, AND THE TRIAL WILL BE DONE AT THE SNF.
--- NOTE | 2017-09-07 17:50 | NUR ---
PATIENT REFUSED MEDICATIONS DUE. RISKS AND BENEFITS DISCUSSED.
--- NOTE | 2017-09-07 18:23 | NUR ---
IV CATHETER REMOVED WITH THE TIP INTACT. OCLUSIVE DRESSING APPLIED. NO EVIDENCE OF BLEEDING. PATIENT IS LEAVING THE UNIT IN STABLE CONDITION ACCOMPANIED BY THE AMBULANCE STAFF.
== END 2017-09-07 18:26 | DRG 177 ==
LOC: ER 15:19 → MEDSG2 18:39 → ICU 23:23 → TELE 09-06 11:14 → MED 09-07 09:36
PROVIDERS: ADMIT Internal Medicine; ATTEND Internal Medicine
DX: J15.6 Pneumonia due to other Gram-negative bacteria (principal); J96.01 Acute respiratory failure with hypoxia; E11.00 Type 2 diabetes mellitus with hyperosmolarity without nonketotic hyperglycemic-hyperosmolar coma (NKHHC); N17.0 Acute kidney failure with tubular necrosis; J98.11 Atelectasis; J15.9 Unspecified bacterial pneumonia; E11.65 Type 2 diabetes mellitus with hyperglycemia; I10 Essential (primary) hypertension; W01.0XXA Fall on same level from slipping, tripping and stumbling without subsequent striking against object, initial encounter; M25.551 Pain in right hip; Y92.59 Other trade areas as the place of occurrence of the external cause; Z79.84 Long term (current) use of oral hypoglycemic drugs; Z79.899 Other long term (current) drug therapy; N40.0 Benign prostatic hyperplasia without lower urinary tract symptoms; E66.9 Obesity, unspecified; Z79.4 Long term (current) use of insulin; G47.33 Obstructive sleep apnea (adult) (pediatric)
CPT/HCPCS: 36415; 36600; 71045-TC; 72192-TC; 73502; 80048-TC; 80061-TC; 80076-TC; 80202-TC; 82150-TC; 82803-TC; 82947-TC; 82962-TC; 83690-TC; 83735-TC; 83880; 83935-TC; 84100-TC; 84484-TC; 85025-TC; 85730-TC; 87081-TC; 92611-TC; 93307-TC; 94762-TC; 94799-TC; A4606; J1100; J1650; J1815; J1940; J2405; J2543; J3370; J3480; J3490; J7030; J7040; J7050; J7060; Q9967; Z7610